=== PATIENT | female | born 1985 | race Caucasian/White ===

== ENCOUNTER 2016-09-08 11:10 | Emergency (ER) | payer OTHER ==
[~2016-09-08] VITALS: Ht 160 cm; Wt 90.7 kg
--- NOTE | 2016-09-08 11:24 | PHYS DOC ---
Past History Past Medical History: No Pertinent History Additional Past Medical Histor: dental issues Smoking: Non-smoker Alcohol Use: None Adult General Chief Complaint Chief Complaint: LACERATION/AVULSION HPI HPI This is a pleasant 31-year-old female with no major medical problems who presents with a small injury to the bridge of the nose that occurred right prior to arrival. She was closing the door when a pull-up bar hanging above came loose striking her across the bridge of the nose. She was mildly dazed but did not lose consciousness when she sat on the floor she did not injure her back her lower extremity's. She denies any persistent headache, persistent nausea or vomiting, or neurologic deficits. She only sees very upset because her children saw injury. She denies any bleeding problems change in vision or other symptoms. Her immunizations including tetanus shot is up-to-date. Review of Systems Review of Systems Constitutional: Denies fever or chills [] Eyes: Denies change in visual acuity, redness, or eye pain [] HENT: Denies nasal congestion or sore throat [] Respiratory: Denies cough or shortness of breath [] Cardiovascular: No additional information not addressed in HPI [] GI: Denies abdominal pain, nausea, vomiting, bloody stools or diarrhea [] : Denies dysuria or hematuria [] Musculoskeletal: Denies back pain or joint pain [] Integument: Denies rash or skin lesions [] Neurologic: Denies headache, focal weakness or sensory changes [] Endocrine: Denies polyuria or polydipsia [] Physical Exam Physical Exam Vital signs within normal limits. Constitutional: Well developed, well nourished, no acute distress, non-toxic appearance. [] HENT: Normocephalic, bilateral external ears normal, oropharynx moist, no oral exudates, small linear laceration along the bridge of the nose measuring 0.5 cm well approximated no active bleeding no foreign body noted.. [] Eyes: PERRLA, EOMI, conjunctiva normal, no discharge. [] Neck: Normal range of motion, no tenderness, supple, no stridor. [] Cardiovascular:Heart rate regular rhythm, no murmur [] Lungs & Thorax: Bilateral breath sounds clear to auscultation [] Skin: Warm, dry, no erythema, no rash. [] Back: No tenderness, no CVA tenderness. [] Neurologic: Alert and oriented X 3, normal motor function, normal sensory function, no focal deficits noted. [] Psychologic: Affect normal, judgement normal, mood normal. [] EKG EKG [] Radiology/Procedures Radiology/Procedures [] Course & Med Decision Making Course & Med Decision Making Pertinent Labs and Imaging studies reviewed. (See chart for details) Patient with small laceration to the bridge of her nose. She has a normal neuro exam and no obvious signs of facial instability like LeFort's fracture. Although she was mildly dazed during injury I do not believe this is an issue that needs to be followed with a CAT scan of the face or head. She denied discussed not getting those CAT scans given her injury pattern. She is in agreement with me that given the amount of radiation exposure that she did not need that. She will have the wound was approximated with some tissue adhesive and follow-up with her primary care doctor. [] Small laceration measuring 0.5 cm across the bridge of nose was cleaned using normal saline scrub and chlorhexidine. Consent was verbal for repair. Patient had no active bleeding no foreign body noted through full range of motion and visualization to the floor the wound. Patient has no midface instability. Patient had tissue adhesive used to approximate the wound edges which were successful. Patient tolerated the procedure well with minimal if no bleeding. No complications Dragon Disclaimer Dragon Disclaimer This chart was dictated in whole or in part using Voice Recognition software in a busy, high-work load, and often noisy Emergency Department environment. It may contain unintended and wholly unrecognized errors or omissions. Departure Departure: Impression: Primary Impression: Laceration of face Disposition: 01 HOME, SELF-CARE Condition: IMPROVED Patient Instructions: Facial Laceration, Tissue Adhesive Wound Care Additional Instructions: Please return for any new or increasing symptoms or given any question concerns. Also return for any signs of infection. HARSH ARZATE MD Sep 08, 2016 11:24
[2016-09-08 11:54] VITALS: BP 128/82
== END 2016-09-08 11:54 | disposition home or self-care (01) ==
LOC: ER 11:10
DX: S01.21XA Laceration without foreign body of nose, initial encounter (principal); X58.XXXA Exposure to other specified factors, initial encounter; Y93.89 Activity, other specified; Y92.89 Other specified places as the place of occurrence of the external cause; Y99.8 Other external cause status
CPT/HCPCS: 12011; 99283-25